=== PATIENT | female | born 1960 | race Two or more races ===

== ENCOUNTER 2025-03-17 08:50 | Day surgery (SDC) | payer OTHER, MEDICAID, SELFPAY ==
[2025-03-16 09:55] VITALS: BMI 33.1
[2025-03-17] VITALS (12 sets, daily range): BP systolic 129–175; BP diastolic 66–95; PULSE 45–78; RESP 13–20; TEMP 36.4–36.9; O2SAT 95–100; BMI 31.8
[2025-03-17] MEDS: SODIUM CHLORIDE 0.9% 500 ML 500 ML 20 ML IV (11:20)
[2025-03-17] MEDS: fentaNYL CIT INJ 50 mCg/ML AMP 2ML IVP (11:26)
[2025-03-17] MEDS: MIDAZOLAM INJ 1 MG/ML VIAL 2 ML (ASD USE ONLY) 2 MG IVP (11:26)
[2025-03-17] MEDS: LIDOCAINE JELLY 2% (Urojet) 10 ML TUBE TOP (11:42)
== END 2025-03-17 12:35 | disposition home or self-care (01) ==
PROVIDERS: PCP Family Medicine; Referring Provider Specialist; Visit Provider Specialist
PROC: 0DBE8ZX Excision of Large Intestine, Via Natural or Artificial Opening Endoscopic, Diagnostic (ICD-10-PCS; CPT 45380; principal; 2025-03-17 10:15)
DX: K64.2 Third degree hemorrhoids (principal); K57.31 Diverticulosis of large intestine without perforation or abscess with bleeding; D12.3 Benign neoplasm of transverse colon; D12.5 Benign neoplasm of sigmoid colon; D12.8 Benign neoplasm of rectum; Z86.0100 Personal history of colon polyps, unspecified
CPT/HCPCS: 46221; 45380; J1200; J2250; J3010; J7999